=== PATIENT | male | born 1950 | race Caucasian/White ===

== ENCOUNTER 2016-12-19 11:54 | Day surgery (SDC) | payer MEDICARE, BC ==
--- NOTE | ~2016-12-19 | EGD ---
EGD REPORT [facility] [address] [address] NAME: CANELO SMALL : [birth year] STATUS : REG [facility] [place] PAT#: [id number] AGE: 66 ADM/REG DATE : 12/19/16 MR#: [id number] REPORT SERV DATE: 12/19/16 DICTATED BY: BRAYAN SWEET DATE: 12/19/16 REPORT STATUS : Draft TRANSCRIBED BY: [employer] DATE: 12/19/16 [facility] Patient Name: Canelo Small Date of : 1950 Attending MD: MADAN SWEET MD Procedure Date No Time: 12/19/2016 Procedure: Flexible Sigmoidoscopy Indications: Change in bowel habits Referring MD: ANGELA MEDINA MD, HUSEYIN CORREA MD Medicines: See the Anesthesia note for documentation of the administered medications Complications: No immediate complications. Procedure: Pre-Anesthesia Assessment: - ASA Grade Assessment: III - A patient with severe systemic disease. - Prior to the procedure, a History and Physical was performed, and patient medications and allergies were reviewed. The patient's tolerance of previous anesthesia was also reviewed. The risks and benefits of the procedure and the sedation options and risks were discussed with the patient. All questions were answered, and informed consent was obtained. Prior Anticoagulants: The patient has taken aspirin and previous NSAID medication, last doses were 1 day prior to procedure. After reviewing the risks and benefits, the patient was deemed in satisfactory condition to undergo the procedure. After obtaining informed consent, the endoscope was passed under direct vision. Throughout the procedure, the patient's blood pressure, pulse, and oxygen saturations were monitored continuously. The GIF H190 [id number] was introduced through the anus and advanced to the left transverse colon. The flexible sigmoidoscopy was accomplished without difficulty. The patient tolerated the procedure well. The quality of the bowel preparation was adequate. Findings: The perianal and digital rectal examinations were normal. Multiple medium-mouthed diverticula were found in the sigmoid colon and in the descending colon. Impression: - Diverticulosis in the sigmoid colon and in the descending colon. EGD REPORT [address] [address] NAME: CANELO SMALL : [birth year] STATUS : REG [facility]#: [id number] AGE: 66 ADM/REG DATE : 12/19/16 MR#: [id number] REPORT SERV DATE: 12/19/16 DICTATED BY: BRAYAN SWEET DATE: 12/19/16 REPORT STATUS : Draft TRANSCRIBED BY: [email or web address] DATE: 12/19/16 Recommendation: - The patient will be observed post-procedure, until all discharge criteria are met. - Regular diet. - Discharge patient to home. Procedure Code(s): --- Professional --- 21098, Sigmoidoscopy, flexible; diagnostic, with or without collection of specimen(s) by brushing or washing (separate procedure) Diagnosis Code(s): --- Professional --- K57.30, Diverticulosis of large intestine without perforation or abscess without bleeding R19.4, Change in bowel habit CPT copyright 2013 [employer]. All rights reserved. The codes documented in this report are preliminary and upon certified ophthalmic technologist review may be revised to meet current compliance requirements. MADAN SWEET MD 12/19/2016 3:28 PM This report has been signed electronically. Number of Addenda: 0 Note Initiated On: 12/19/2016 2:59 PM Scope Withdrawal Time 0 hours 0 minutes 0 seconds [id number] [id number]
--- NOTE | ~2016-12-19 | EGD ---
EGD REPORT [facility] [address] [address] NAME: CANELO SMALL : 50 STATUS : REG [facility] [place] PAT#: [id number] AGE: 66 ADM/REG DATE : 12/19/16 MR#: [id number] REPORT SERV DATE: 12/19/16 DICTATED BY: BRAYAN SWEET DATE: 12/19/16 REPORT STATUS : Draft TRANSCRIBED BY: [employer] DATE: 12/19/16 [facility] Patient Name: Canelo Small Date of : 1950 Attending MD: MADAN SWEET MD Procedure Date No Time: 12/19/2016 Procedure: Upper GI endoscopy Indications: Gastro-esophageal reflux disease Referring MD: ANGELA MEDINA MD, HUSEYIN CORREA MD Medicines: See the Anesthesia note for documentation of the administered medications Complications: No immediate complications. Estimated blood loss: None. Procedure: Pre-Anesthesia Assessment: - ASA Grade Assessment: III - A patient with severe systemic disease. - Prior to the procedure, a History and Physical was performed, and patient medications and allergies were reviewed. The patient's tolerance of previous anesthesia was also reviewed. The risks and benefits of the procedure and the sedation options and risks were discussed with the patient. All questions were answered, and informed consent was obtained. Prior Anticoagulants: The patient has taken aspirin and previous NSAID medication, last doses were 1 day prior to procedure. After reviewing the risks and benefits, the patient was deemed in satisfactory condition to undergo the procedure. After obtaining informed consent, the endoscope was passed under direct vision. Throughout the procedure, the patient's blood pressure, pulse, and oxygen saturations were monitored continuously. The GIF H190 [id number] was introduced through the mouth, and advanced to the second part of duodenum. The upper GI endoscopy was accomplished without difficulty. The patient tolerated the procedure well. Findings: The examined duodenum was normal. Biopsies were taken with a cold forceps for histology. The entire examined stomach was normal. Biopsies were taken with a cold forceps for histology. The cardia and gastric fundus were normal on retroflexion. The examined esophagus was normal. Impression: - Normal examined duodenum. Biopsied. EGD REPORT [address] [address] NAME: CANELO SMALL : [birth year] STATUS : REG [facility] [place] PAT#: [id number] AGE: 66 ADM/REG DATE : 12/19/16 MR#: [id number] REPORT SERV DATE: 12/19/16 DICTATED BY: BRAYAN SWEET DATE: 12/19/16 REPORT STATUS : Draft TRANSCRIBED BY: [employer] DATE: 12/19/16 - Normal stomach. Biopsied. - Normal esophagus. Recommendation: - Patient has a contact number available for emergencies. The signs and symptoms of potential delayed complications were discussed with the patient. Return to normal activities tomorrow. Written discharge instructions were provided to the patient. - Regular diet. - Discharge patient to home. - Continue present medications. - Await pathology results. - Return to my office in 1 month. Procedure Code(s): --- Professional --- 55314, Esophagogastroduodenoscopy, flexible, transoral; with biopsy, single or multiple Diagnosis Code(s): --- Professional --- K21.9, Gastro-esophageal reflux disease without esophagitis CPT copyright 2013 [employer]. All rights reserved. The codes documented in this report are preliminary and upon city superintendent of schools review may be revised to meet current compliance requirements. MADAN SWEET MD 12/19/2016 3:19 PM This report has been signed electronically. Number of Addenda: 0 Note Initiated On: 12/19/2016 3:04 PM Scope Withdrawal Time 0 hours 0 minutes 0 seconds [id number] [id number]
--- NOTE | ~2016-12-19 | EGD ---
EGD REPORT [facility] [address] [address] NAME: CANELO SMALL : 50 STATUS : REG [facility] [place] PAT#: [id number] AGE: 66 ADM/REG DATE : 12/19/16 MR#: [id number] REPORT SERV DATE: 12/19/16 DICTATED BY: BRAYAN SWEET DATE: 12/19/16 REPORT STATUS : Draft TRANSCRIBED BY: [employer] DATE: 12/19/16 End[facility] Center Patient Name: Canelo Small Date of : 1950 Attending MD: MADAN SWEET MD Procedure Date No Time: 12/19/2016 Procedure: Upper GI endoscopy Indications: Gastro-esophageal reflux disease Referring MD: ANGELA MEDINA MD, HUSEYIN CORREA MD Medicines: See the Anesthesia note for documentation of the administered medications Complications: No immediate complications. Estimated blood loss: None. Procedure: Pre-Anesthesia Assessment: - ASA Grade Assessment: III - A patient with severe systemic disease. - Prior to the procedure, a History and Physical was performed, and patient medications and allergies were reviewed. The patient's tolerance of previous anesthesia was also reviewed. The risks and benefits of the procedure and the sedation options and risks were discussed with the patient. All questions were answered, and informed consent was obtained. Prior Anticoagulants: The patient has taken aspirin and previous NSAID medication, last doses were 1 day prior to procedure. After reviewing the risks and benefits, the patient was deemed in satisfactory condition to undergo the procedure. After obtaining informed consent, the endoscope was passed under direct vision. Throughout the procedure, the patient's blood pressure, pulse, and oxygen saturations were monitored continuously. The GIF H190 [id number] was introduced through the mouth, and advanced to the second part of duodenum. The upper GI endoscopy was accomplished without difficulty. The patient tolerated the procedure well. Findings: The examined duodenum was normal. Biopsies were taken with a cold forceps for histology. The entire examined stomach was normal. Biopsies were taken with a cold forceps for histology. The cardia and gastric fundus were normal on retroflexion. The examined esophagus was normal. Impression: - Normal examined duodenum. Biopsied. EGD REPORT [address] [address] NAME: CANELO SMALL : [birth year] STATUS : REG [facility] [place] PAT#: [id number] AGE: 66 ADM/REG DATE : 12/19/16 MR#: [id number] REPORT SERV DATE: 12/19/16 DICTATED BY: BRAYAN SWEET DATE: 12/19/16 REPORT STATUS : Draft TRANSCRIBED BY: [employer] DATE: 12/19/16 - Normal stomach. Biopsied. - Normal esophagus. Recommendation: - Patient has a contact number available for emergencies. The signs and symptoms of potential delayed complications were discussed with the patient. Return to normal activities tomorrow. Written discharge instructions were provided to the patient. - Regular diet. - Discharge patient to home. - Continue present medications. - Await pathology results. - Return to my office in 1 month. Procedure Code(s): --- Professional --- 35280, Esophagogastroduodenoscopy, flexible, transoral; with biopsy, single or multiple Diagnosis Code(s): --- Professional --- K21.9, Gastro-esophageal reflux disease without esophagitis CPT copyright 2013 [employer]. All rights reserved. The codes documented in this report are preliminary and upon geophysical drafter review may be revised to meet current compliance requirements. MADAN SWEET MD 12/19/2016 3:19 PM This report has been signed electronically. Number of Addenda: 0 Note Initiated On: 12/19/2016 3:04 PM Scope Withdrawal Time 0 hours 0 minutes 0 seconds [id number] [place] [id number]
[~2016-12-19 11:54] MED LIST: ANTARA130 MG PO; ASAB PO; CYANO1000T PO; CYMBALTA60 PO; DARVN100 PO; DIOV160 PO; FISH-EPA1000 MG PO; LOP50 PO; LOZOLTAB PO; LUPRON DEPOT3.75 MG IM; MOBIC15 MG PO; MULTIPLE VIT PO; PRILO PO; PRILOSEC40 MG PO; RANITIDINE300 MG PO; TOPROL XL200 MG PO; ULTRAM50 PO; Z300 PO; ZANAFLEX 4 MG TA4 MG PO
[2017-01-01] MEDS ORDERED: TOPXL50 PO (12:04)
[2017-01-01] MEDS ORDERED: NEUR300 PO (12:07)
[2017-01-01] MEDS ORDERED: MEG20 PO (12:07)
[2017-02-22] MEDS ORDERED: OXYCOD PO (11:18)
[2017-02-22] MEDS ORDERED: V2 PO (11:19)
[2017-02-22] MEDS ORDERED: MSCONT15 PO (11:19)
== END 2016-12-19 23:59 | disposition home or self-care (01) ==
LOC: DMU 11:54
PROVIDERS: Internal Medicine Gastroenterology
PROC: 0DJD8ZZ Inspection of Lower Intestinal Tract, Via Natural or Artificial Opening Endoscopic (ICD-10-PCS; 2016-12-19)
PROC: 0DB98ZX Excision of Duodenum, Via Natural or Artificial Opening Endoscopic, Diagnostic (ICD-10-PCS; principal; 2016-12-19 13:30)
PROC: 0DB68ZX Excision of Stomach, Via Natural or Artificial Opening Endoscopic, Diagnostic (ICD-10-PCS; 2016-12-19 13:30)
DX: K57.30 Diverticulosis of large intestine without perforation or abscess without bleeding (principal); K21.9 Gastro-esophageal reflux disease without esophagitis; I10 Essential (primary) hypertension; M19.90 Unspecified osteoarthritis, unspecified site; M10.9 Gout, unspecified; G47.33 Obstructive sleep apnea (adult) (pediatric); E66.01 Morbid (severe) obesity due to excess calories; Z98.52 Vasectomy status; Z98.890 Other specified postprocedural states; Z88.2 Allergy status to sulfonamides; Z90.79 Acquired absence of other genital organ(s); Z86.73 Personal history of transient ischemic attack (TIA), and cerebral infarction without residual deficits; Z99.81 Dependence on supplemental oxygen; Z86.010 Personal history of colon polyps
CPT/HCPCS: 88305